=== PATIENT | male | born 1975 | race Two or more races ===

== ENCOUNTER 2021-09-05 21:22 | Emergency (ER) | payer OTHER ==
[~2021-09-05] VITALS: Ht 165.1 cm; Wt 86.8 kg
--- NOTE | 2021-09-05 21:37 | PHYS DOC ---
Past Medical History Past Medical History Prediabetes Smoking Status: Never Smoker Alcohol Use: None Drug Use: None General Adult HPI: HPI: Patient is a 46 year old male who presents with report of generalized fatigue, generalized weakness, dizziness. Symptoms began around 7 PM. Who presents just after 9:30 PM. He denies any numbness or tingling or focal weakness. He reports that he did have a headache, this headache is now improved. He went on a 10 mile bike ride, as he often does, and he returned home, placed his bike on the bike rack, then he went inside his home and was petting his kitten when symptoms began. He does already report feeling better. He denies chest pain, palpitations, dyspnea. He denies abdominal pain. He denies nausea or vomiting. He denies fall, head injury, syncope. He does report having some generalized muscle aches as well. He reports that he has been hydrating well. He reports that he has been working out regularly for the past year or so, in order to lose weight and avoid taking medications for his prediabetes. He reports that he had a heat stroke many years ago, though he does admit that this does not feel the same. No history of CVA or TIA. Review of Systems: Review of Systems: Constitutional: Denies fever or chills. [] Eyes: Denies change in visual acuity. Denies vision loss. HENT: Denies nasal congestion or sore throat. [] Respiratory: Denies cough or shortness of breath. [] Cardiovascular: Denies chest pain or edema. [] GI: Denies abdominal pain, nausea, vomiting, or diarrhea. : Denies urinary symptoms. Musculoskeletal: Denies back pain or joint pain. He does report some mild diffuse myalgias. Integument: Denies rash. [] Neurologic: He reports having a mild headache, currently resolved. No thund erclap headache. Denies numbness, tingling, focal motor weakness. Does report some generalized muscle aches and generalized weakness. No facial weakness, no speech difficulty. No syncope. No fall or head injury. Endocrine: Denies polyuria or polydipsia. [] Lymphatic: Denies swollen glands. [] Psychiatric: Denies depression or anxiety. [] Heart Score: C/O Chest Pain: No Risk Factors: Risk Factors: DM, Current or recent (<one month) smoker, HTN, HLP, family history of CAD, obesity. Risk Scores: Score 0 - 3: 2.5% MACE over next 6 weeks - Discharge Home Score 4 - 6: 20.3% MACE over next 6 weeks - Admit for Clinical Observation Score 7 - 10: 72.7% MACE over next 6 weeks - Early Invasive Strategies Physical Exam: PE: Constitutional: Well developed, well nourished, no acute distress, non-toxic appearance. [] HENT: Normocephalic, atraumatic, oropharynx is patent and clear, no evidence of facial or oral trauma. Mucous membranes are moist. External ears are normal bilaterally. TMs are clear bilaterally. Nares are patent clear without rhinorrhea epistaxis Eyes: PERRL, EOMI, conjunctiva normal, no discharge. No evidence of ocular or periorbital trauma. No nystagmus. No scleral icterus. Neck: Normal range of motion, no tenderness, supple, no stridor. Trachea is midline. No meningismus. Cardiovascular:Heart rate regular rhythm, +2 radial and +2 posterior tibial pulses bilaterally. Lungs & Thorax: Bilateral breath sounds clear to auscultation, no rales, rhonchi or wheezes. Equal chest rise. No evidence of chest or thorax trauma. Abdomen: Abdomen is soft, nondistended, nontender to palpation. No palpable pulsatile mass. No CVA tenderness. No flank abdominal ecchymoses. No evidence of abdominal trauma. Skin: Warm, dry, no erythema, no rash. [] Back: No tenderness, no CVA tenderness. Full range of motion. No evidence of deformity. No midline tenderness or step-offs. Extremities: No tenderness, no cyanosis, no clubbing, ROM intact, no edema. No calf tenderness. Neurologic: He is awake, alert, oriented x3, cranial nerves II through XII grossly intact. 5 out of 5 motor strength all 4 extremities. Sensation is grossly intact. Speech is clear and fluent. No pronator drift or dysmetria. No limb ataxia. Gait is steady, nonantalgic, no ataxia. Nonfocal neurologic exam. NIH is 0. Psychologic: Affect normal, judgement normal, mood normal. He is pleasant and cooperative. EKG: EKG: EKG is interpreted at 2206 Rhythm is sinus Rate is 87 bpm [place] is left No STEMI No acute ischemia Radiology/Procedures: Radiology/Procedures: IMAGING REPORT Signed PATIENT: SEAN PARKER AACCOUNT: [id number] : 1975 LOCATION: ER AGE: 46 SEX: M EXAM STATUS: PRE ER ORD. PHYSICIAN: SHERRY JORGENSEN DO REASON: code stroke PROCEDURE: CT HEAD WO CONTRAST Exam: CT head INDICATION: Stroke TECHNIQUE: Sequential axial images through the head were obtained without the administration of IV contrast. Exposure: One or more of the following in the visualized dose reduction techniques were utilized for this examination: 1. Automated exposure control 2. Adjustment of the MA and/or KV according to patient size 3. Use of iterative of reconstructive technique Comparisons: None FINDINGS: No focal parenchymal lesion or hemorrhage is identified. There is no midline shift or sulcal effacement. No acute vascular territory infarction is identified. Noyola-white distinction is preserved. The ventricular system is within normal limits without compression hydrocephalus. The basal cisterns are well maintained. The visualized portions of the paranasal sinuses and mastoid air cells are well- pneumatized. No acute fractures. IMPRESSION: No acute intracranial abnormality. FOR INTERNAL CODING PURPOSES Critical result: Findings discussed with SHERRY JORGENSEN DO at 09/05/2021 9:52 PM. RESULT CODE: (C) Electronically signed by: Julian Hartley MD (09/05/2021 9:55 PM) [facility] DICTATED and SIGNED BY: JULIAN HARTLEY MD DATE: 09/05/212150 IMAGING REPORT Signed PATIENT: SEAN PARKER AACCOUNT: [id number] : 1975 LOCATION: ER AGE: 46 SEX: M EXAM STATUS: REG ER ORD. PHYSICIAN: SHERRY JORGENSEN DO REASON: weakness PROCEDURE: PORTABLE CHEST 1V Exam: Chest one view INDICATION: Weakness TECHNIQUE: Frontal view of the chest Comparisons: None FINDINGS: The cardiomediastinal silhouette and pulmonary vessels are within normal limits. The lung and pleural spaces are clear. IMPRESSION: No acute cardiopulmonary process. Electronically signed by: Julian Hartley MD (09/05/2021 10:59 PM) [facility] DICTATED and SIGNED BY: JULIAN HARTLEY MD DATE: 09/05/21 5767 Course & Med Decision Making: Course & Med Decision Making Pertinent Labs and Imaging studies reviewed. (See chart for details) I discussed the findings, differential diagnosis and plan of care with him. He has a nonfocal neurologic exam. Serial troponin exams are negative. He continues to deny any focal weakness. Denies chest pain or dyspnea. He reports having a mild headache, declines pain medication for this. He feels comfortable with the plan for discharge home. I recommend he contact his PCP for follow-up. Return precautions are given. He verbalizes understanding. Dragon Disclaimer: Rashaad Disclaimer: This electronic medical record was generated, in whole or in part, using a voice recognition dictation system. Departure Departure Impression: Primary Impression: Dizziness Additional Impression: Generalized weakness Disposition: 01 HOME / SELF CARE / HOMELESS Condition: STABLE Referrals: UNKNOWN PCP NAME (PCP) Patient Instructions: Dizziness, General Headache Without Cause, [id number], Weakness Additional Instructions: Return to the ER immediately for more severe symptoms, severe headache, uncontrolled vomiting, chest pain, shortness of breath, if you fall or sustain any injuries, if you develop any focal weakness, paralysis, facial droop, speech difficulty or for any other concerns. Stay hydrated, get plenty of rest, drink plenty of water. Avoid any strenuous activity for today. Please contact your primary care doctor for follow-up. SHERRY JORGENSEN DO Sep 05, 2021 21:37
--- NOTE | 2021-09-05 21:57 | RAD ---
Exam: CT head INDICATION: Stroke TECHNIQUE: Sequential axial images through the head were obtained without the administration of IV co ntrast. Exposure: One or more of the following in the visualized dose reduction techniques were utilized for this examination: 1. Automated exposure control 2. Adjustment of the MA and/or KV according to patient size 3. Use of iterative of reconstructive technique Comparisons: None FINDINGS: No focal parenchymal lesion or hemorrhage is identified. There is no midline shift or sulcal effaceme nt. No acute vascular territory infarction is identified. Noyola-white distinction is preserved. The ventricular system is within normal limits without compression hydrocephalus. The basal cisterns are well maintained. The visualized portions of the paranasal sinuses and mastoid air cells are well-pneumatized. No acute fractures. IMPRESSION: No acute intracranial abnormality. FOR INTERNAL CODING PURPOSES Critical result: Findings discussed with SHERRY JORGENSEN DO at 09/05/2021 9:52 PM. RESULT CODE: (C) Electronically signed by: Julian Engel MD (09/05/2021 9:55 PM) JONEL
[2021-09-05 22:07] LABS: BASO # 0.1 x10^3/uL (0.0-0.2); BASO % 1 % (0-3); EOS # 0.2 x10^3/uL (0.0-0.7); EOS % 2 % (0-3); HEMATOCRIT 43.3 % (39.0-53.0); HEMOGLOBIN 14.9 g/dL (13.0-17.5); LYMPH # 2.7 x10^3/uL (1.0-4.8); LYMPH % 26 % (24-48); MEAN CORPUSCULAR HEMOGLOBIN 28 pg (25-35); MEAN CORPUSCULAR HGB CONC 34 g/dL (31-37); MEAN CORPUSCULAR VOLUME 83 fL (79-100); MONO # 0.8 x10^3/uL (0.0-1.1); MONO % 8 % (0-9); NEUT # 6.8 x10^3/uL (1.8-7.7); NEUT % 64 % (31-73); PLATELET COUNT 278 x10^3/uL (140-400); RED BLOOD COUNT 5.25 x10^6/uL (4.30-5.70); RED CELL DISTRIBUTION WIDTH 13.3 % (11.5-14.5); WHITE BLOOD COUNT 10.6 x10^3/uL (4.0-11.0)
[2021-09-05] MEDS: IV NORMAL SALINE 1000ML BAG 1,000 ML IV ONE (22:14)
[2021-09-05 22:15] LABS: CREATININE 1.1 mg/dL (0.7-1.3); GFR 72.1; POTASSIUM 3.9 mmol/L (3.5-5.1)
[2021-09-05 22:27] LABS: ALBUMIN 4.2 g/dL (3.4-5.0); ALBUMIN/GLOBULIN RATIO 1.1 (1.0-1.7); MAGNESIUM 2.1 mg/dL (1.8-2.4); PHOSPHORUS 2.8 mg/dL (2.6-4.7); TOTAL BILIRUBIN 0.2 mg/dL (0.2-1.0); TOTAL PROTEIN 8.1 g/dL (6.4-8.2)
[2021-09-05 22:37] LABS: BILIRUBIN,URINE NEGATIVE (NEG); CLARITY,URINE CLEAR; COLOR,URINE COLORLESS; NITRITE,URINE NEGATIVE (NEG); PROTEIN,URINE NEGATIVE (NEG-TRACE); UROBILINOGEN,URINE 0.2 mg/dL (0.2 mg/dL)
[2021-09-05 22:38] LABS: BACTERIA,URINE 0 /HPF (0-FEW); RBC,URINE 0 /HPF (0-2); WBC,URINE 0 /HPF (0-4)
--- NOTE | 2021-09-05 23:01 | RAD ---
Exam: Chest one view INDICATION: Weakness TECHNIQUE: Frontal view of the chest Comparisons: None FINDINGS: The cardiomediastinal silhouette and pulmonary vessels are within normal limits. The lung and pleural spaces are clear. IMPRESSION: No acute cardiopulmonary process. Electronically signed by: Julian Engel MD (09/05/2021 10:59 PM) JONEL
[2021-09-06 02:47] VITALS: BP 142/95
--- NOTE | 2021-09-06 18:34 | EKG ---
[facility] [address] [place] [address] Test Date: 1999-06-21 Test Time: 22:04:34 Pat Name: SEAN PARKER Department: Room: Gender: Manager Acquisition: : 1975 Requested By: SHERRY JORGENSEN Order Number: [id number] Reading MD: Measurements Intervals [place] Rate: 87 P: 51 [place]: 164 QRS: -19 QRSD: 86 T: 25 QT: 330 QTc: 398 Interpretive Statements SINUS RHYTHM LEFTWARD AXIS OTHERWISE NORMAL ECG RI6.02 No previous ECG available for comparison
== END 2021-09-06 02:50 | disposition home or self-care (01) ==
LOC: ER 21:22
DX: R42 Dizziness and giddiness (principal); R53.1 Weakness; R51.9 Headache, unspecified
CPT/HCPCS: 36415; 70450; 71045; 80053; 81001; 82550; 82962; 83735; 84100; 84484; 85025; 93005; 96360; 96361; 99285; J7030